=== PATIENT | female | born 1970 | race African-American/Black ===

== ENCOUNTER 2022-01-19 14:55 | Emergency (ER) | payer MEDICAID, OTHER ==
[~2022-01-19] VITALS: Ht 167.6 cm; Wt 80.0 kg
[2022-01-19 16:57] VITALS: BP 128/90
[2022-01-19] MEDS ORDERED: VISCOUS LIDOCAINE 2% 15 ML UDC MM STA (18:42)
[2022-01-19 18:44] LABS: CLARITY URINE CLEAR (CLEAR); COLOR URINE YELLOW (YELLOW); KETONES URINE NEGATIVE (NEGATIVE); LEUKOCYTE ESTERASE URINE NEGATIVE (NEGATIVE); NITRITE URINE NEGATIVE (NEGATIVE); OCCULT BLOOD URINE NEGATIVE (NEGATIVE); PROTEIN URINE NEGATIVE (NEGATIVE); SPECIFIC GRAVITY URINE 1.031 (1.005-1.030)
[2022-01-19] MEDS ORDERED: MAGNESIUM/ALUMINUM HYDROXIDE/SIMETHICONE 30ML UDC PO ONE (18:45)
[2022-01-19] MEDS ORDERED: ONDANSETRON 4MG ODT PO ONE (18:45)
[2022-01-19] MEDS ORDERED: FAMOTIDINE 20MG TABLET PO ONE (18:45)
[2022-01-19] MEDS ORDERED: ACETAMINOPHEN 325MG TABLET PO ONE (18:45)
[2022-01-19 18:59] LABS: BASOPHILS % 0.4 % (0.0-2.0); EOSINOPHILS % 0.8 % (0.0-5.0); HEMATOCRIT. 47.4 % (36.0-48.0); LYMPHOCYTES % 29.5 % (20.0-50.0); MEAN CORPUSCULAR HEMOGLOBIN 26.9 pg (28.0-32.0); MEAN CORPUSCULAR VOLUME 79.9 fL (81.0-99.0); MEAN PLATELET VOLUME 8.4 fl (7.4-10.4); NEUTROPHILS % 64.3 % (40.0-76.0); PLATELET 329 x1000/uL (130-400); RED BLOOD CELL COUNT 5.93 mill/uL (4.2-5.4); RED CELL DISTRIBUTION WIDTH 13.8 % (11.6-14.6)
[2022-01-19 19:03] LABS: *AMPHETAMINES SCREEN URINE NEGATIVE (NEGATIVE); *BARBITURATES SCREEN URINE NEGATIVE (NEGATIVE); *BENZODIAZEPINES SCREEN URINE NEGATIVE (NEGATIVE); *COCAINE SCREEN URINE NEGATIVE (NEGATIVE); CANNABINOID URINE SCREEN NEGATIVE (NEGATIVE); METHADONE URINE SCREEN NEGATIVE (NEGATIVE); OPIATES URINE SCREEN NEGATIVE (NEGATIVE); PHENCYCLIDINE URINE SCREEN NEGATIVE (NEGATIVE)
[2022-01-19 19:07] LABS: CHLORIDE 98 mEq/L (98-107)
[2022-01-19 19:19] LABS: ETHANOL BLOOD < 10 mg/dL
[2022-01-19] MEDS ORDERED: TOPUD PO (19:32)
[2022-01-19] MEDS ORDERED: FAMO40TA70 MT (19:32)
[2022-01-19] MEDS ORDERED: MAG-55 MT (19:32)
== END 2022-01-19 19:49 | disposition home or self-care (01) ==
LOC: ER 15:05
DX: K21.9 Gastro-esophageal reflux disease without esophagitis (principal); E11.65 Type 2 diabetes mellitus with hyperglycemia; I10 Essential (primary) hypertension; E11.9 Type 2 diabetes mellitus without complications
CPT/HCPCS: 36415; 80053; 80305; 80320; 81003; 81025; 83690; 85025; 93005; 99284; Q0162; G0480